=== PATIENT | female | born 1975 | race Hispanic/Latino ===

== ENCOUNTER → 2018-09-06 | Outpatient (CLI) | payer SELFPAY | END | disposition home or self-care (01) | LOC: OIH 13:46 → EDUNIT# 14:00 | PROVIDERS: ATTEND Internal Medicine Cardiovascular Disease | DX: Z13.6 Encounter for screening for cardiovascular disorders (principal) | CPT/HCPCS: 75571 ==

== ENCOUNTER → 2018-09-06 | Outpatient (CLI) | payer BC | END | disposition home or self-care (01) | LOC: SHCH 08:24 | PROVIDERS: ATTEND Internal Medicine Cardiovascular Disease | DX: I51.7 Cardiomegaly (principal) | CPT/HCPCS: 93306 ==

== ENCOUNTER 2024-09-01 06:30 | Day surgery (SDC) | payer BC ==
[2024-08-31 09:50] VITALS: BP 142/90; PULSE 97; RESP 17; TEMP 97.7
[2024-08-31 09:54] LABS: BASOPHILS # (AUTO) 0.03 K/uL (0.00-0.20); BASOPHILS % (AUTO) 0.2 % (0.0-5.0); EOSINOPHILS # (AUTO) 0.22 K/uL (0.00-0.70); EOSINOPHILS % (AUTO) 1.8 % (0.0-8.0); HEMATOCRIT 45.4 % (36-48); IMMATURE GRANULOCYTE ABSOLUTE 0.13 K/uL (0-1); LYMPHOCYTES # (AUTO) 2.4 K/uL (1.0-4.8); LYMPHOCYTES % (AUTO) 19.5 % (21.0-51.0); MEAN CORPUSCULAR HEMOGLOBIN 30.7 pg (27.0-33.0); MEAN CORPUSCULAR HGB CONC 34.8 g/dL (32.0-36.0); MEAN CORPUSCULAR VOLUME 88.2 fL (79-99); MONOCYTES # (AUTO) 0.5 K/uL (0.1-1.0); NEUTROPHILS # (AUTO) 9.1 K/uL (1.8-7.7); NEUTROPHILS % (AUTO) 73.5 % (40.0-77.0); PLATELET COUNT (AUTO) 237 K/uL (130-400); RED BLOOD CELL COUNT(AUTO) 5.15 MIL/uL (4.00-5.50); RED CELL DISTRIBUTION WIDTH 13.6 % (11.0-15.5); WHITE BLOOD COUNT (AUTO) 12.4 K/uL (4.8-10.8)
[2024-08-31 09:59] LABS: APPEARANCE,URINE CLEAR (CLEAR); BILIRUBIN,URINE NEGATIVE (NEGATIVE); COLOR,URINE LIGHT-YELLOW (YELLOW); GLUCOSE, URINE (UA) >=1000 mg/dL (NEGATIVE); KETONES,URINE NEGATIVE (NEGATIVE); LEUKOCYTE ESTERASE ,URINE NEGATIVE Leu/uL (NEGATIVE); NITRATE,URINE NEGATIVE (NEGATIVE); OCCULT BLOOD,URINE NEGATIVE (NEGATIVE); PROTEIN,URINE NEGATIVE (NEGATIVE); UROBILINOGEN,URINE 0.2 mg/dL (0.2-1.0)
[2024-08-31 10:02] LABS: CREATININE 0.8 mg/dL (0.5-1.0)
[2024-08-31 10:04] LABS: INR 0.95 (0.85-1.15); PROTHROMBIN TIME 10.1 SEC (9.6-11.6)
[2024-08-31 10:05] LABS: PARTIAL THROMBOPLASTIN TIME 25.4 SEC (26.3-35.5)
[2024-08-31 10:06] LABS: ADD UA MICROSCOPIC YES
[2024-08-31 10:28] LABS: RBC,URINE 0-1 /HPF (0-1); SQUAMOUS EPITHELIAL CELL,UR RARE /HPF (0-2); WBC,URINE 0-1 /HPF (0-1)
--- NOTE | 2024-08-31 16:42 | NUR ---
RE: LABS REPORTED CBC RESULTS TO JULIETH / DR OLIVAS, OK TO PROCEED. NO NEW ORDERS.
[~2024-09-01] VITALS: Ht 162.6 cm; Wt 84.1 kg
[2024-09-01] VITALS (19 sets, daily range): BP systolic 132–170; BP diastolic 63–104; PULSE 62–87; RESP 14–19; TEMP 97.4–97.9
[~2024-09-01 06:30] MED LIST: AMLO-258 PO; DAPA10TA PO; LEVO137T2 PO; LOSA1TAB54 PO; METF-444 PO; SEMA1PEN3 SQ
[2024-09-01] MEDS ORDERED: LIDOCAINE PF 100MG/5ML (2%) SYRINGE 5ML ONE (07:09)
[2024-09-01] MEDS ORDERED: rocuRONium bROMide 10MG/1ML 5ML VL ONE (07:10)
[2024-09-01] MEDS ORDERED: proPOFol 10 MG/ML 20ML VIAL IV ONE (07:10)
[2024-09-01] MEDS ORDERED: FENTanyl CITRate PF 50 MCG/1 ML 2ML VIAL ONE ×2 (07:10→08:22)
[2024-09-01] MEDS ORDERED: MIDAZOLAM HCL 1 MG/ML 2ML VIAL ONE (07:10)
[2024-09-01] MEDS ORDERED: VANCOMYCIN 1G/250ML KIT 0 ML IV ONE (07:11)
[2024-09-01] MEDS ORDERED: TOBRAMYCIN SULFATE ONE (07:12)
[2024-09-01] MEDS ORDERED: THROMBIN-JMI 5000 UNIT/VIAL TP ONE (07:13)
[2024-09-01] MEDS ORDERED: dexmedeTOMIDine HCL 200 MCG/2 ML VIAL IV ONE ×2 (07:16→07:35)
[2024-09-01] MEDS ORDERED: phenylEPHRINE HCL 10 MG/ML 1ML VIAL IV ONE (07:26)
[2024-09-01] MEDS: 0.9%NACL 1000ML 1,000 ML IV ONE (08:01)
[2024-09-01] MEDS: ceFAZolin SODIUM 2 GM VIAL ONE (08:11)
[2024-09-01] MEDS ORDERED: ondanSETRON 4MG INJ ONE (08:17)
[2024-09-01] MEDS ORDERED: dexaMETHasone SOD PHOSPHATE 4 MG/ML 1ML VIAL ONE (08:17)
[2024-09-01] MEDS ORDERED: METHYLPREDNISOLONE ACETATE 80 MG/ML ONE (08:18)
[2024-09-01] MEDS: BUPIvacaine/PF 0.25% 30ML VIAL IJ ONE (08:40)
[2024-09-01] MEDS: METHYLPREDNISOLONE ACETATE 80 MG/ML ONE (08:40)
[2024-09-01] MEDS: FENTanyl CITRate PF 50 MCG/1 ML 2ML VIAL ONE (08:40)
[2024-09-01] MEDS: LIDOCAINE 1%-EPI 1:100,000 20 ML VIAL ONE (08:40)
[2024-09-01] MEDS ORDERED: NEOSTIGMINE METHYLSULFATE 1MG/ML IV ONE (08:48)
[2024-09-01] MEDS ORDERED: GLYCOPYRROLATE 0.2 MG/ML 5 ML VIAL ONE (08:48)
--- NOTE | 2024-09-01 09:46 | OP ---
DATE OF PROCEDURE: 09/01/2024 PREOPERATIVE DIAGNOSIS: Thoracolumbar pathologic fractures at L2-L5. POSTOPERATIVE DIAGNOSIS: Pathologic fracture. SURGEON: Syed Lee M.D. PROCEDURES: Open biopsy of L5 pathologic fracture and biopsy of L2 as well. The patient tolerated the procedure well. There were no complications. INDICATIONS FOR PROCEDURE: The patient is a 49-year-old female patient seen earlier because of compression fractures after she had some activity. Nevertheless, she was seen with x-rays and MRI and bone scan months after, revealed another fracture but this one without any inciting event. She was advised, agreed and consented freely for the biopsy. DESCRIPTION OF PROCEDURE: The patient was brought to the operating room. Adequate general endotracheal anesthesia was achieved. IV antibiotics were given. Thereafter, DVT garments and the needle for the EMG, SSEP were secured on there. Then, the back was extensively prepped and draped in the usual sterile fashion. All pressure areas were padded and then ____. Small incision was done at L5. Dissection was continued. I was able to identify the pedicle. This was correlated with x-rays on the AP and lateral fluoroscopy. Thereafter, the drill was used to start the pest control pilot hole in the pedicle of L5 in the right side and thereafter, I was able to use the pituitary and then the trocar as well to remove bone for the biopsy. A small amount of blood was also sent. A small piece of Gelfoam was positioned to achieve hemostasis. Thereafter, the second biopsy at L2 was done percutaneously and this was in the contralateral left side. The pedicle was identified on the AP and lateral fluoroscopy. The stab wound was done with blade 11 and through there, the trocar was inserted. Always on the AP and lateral fluoroscopy, this was advanced. Once in the vertebral body, we used the trocar to remove a small amount of bone as well as some of the blood, which was sent in a separate container. Thereafter, Marcaine 0.25% and lidocaine 1% with epinephrine were infiltrated in those delineated skin sites and then local care was given. On the AP and lateral fluoroscopy, we proceeded to do an epidural block at L4-L5. The Tuohy needle was inserted using the resistant technique. The epidural space was entered and thereafter, the spinal block was given, 1 mL of 0.25% spinal Marcaine with 50 mcg of fentanyl and 40 mg of Depo-Medrol. The patient tolerated the procedure well. There were no complications. The EMG, SSEP remained baseline. Sponge count was reported complete at the end of the procedure. TID: [id number] RECEIPT: [id number]
--- NOTE | 2024-09-01 11:55 | NUR ---
PT CAOX4 GOOD DISTAL PMS TO ALL EXTREMITIES VSS NAD. DISCHARGE INSTRUCTIONS GIVEN TO BOTH PT AND 2 SONS IN ROOM IV REMOVED SITE ASYMPTOMATIC. PT WHEELED OUTSIDE SON DRIVING.
[2024-09-01] MEDS ORDERED: IOHEXOL 180 MG/ML 20 ML VIAL ONE (12:26)
--- NOTE | 2024-09-01 18:12 | HMCIMG ---
LUMBAR SPINE 2-3VWS HISTORY: Lumbar biopsy COMPARISON: None FINDINGS: Fluoroscopic images were obtained. Please see procedure report by the referring physician. IMPRESSION: 1. Intraoperative films.
== END 2024-09-01 12:12 | disposition home or self-care (01) ==
LOC: DAH 06:30
PROVIDERS: ATTEND Neurological Surgery
DX: M84.48XA Pathological fracture, other site, initial encounter for fracture (principal); M89.9 Disorder of bone, unspecified; I10 Essential (primary) hypertension; E11.9 Type 2 diabetes mellitus without complications; E78.00 Pure hypercholesterolemia, unspecified; G95.29 Other cord compression; M48.02 Spinal stenosis, cervical region; M50.123 Cervical disc disorder at C6-C7 level with radiculopathy; M50.122 Cervical disc disorder at C5-C6 level with radiculopathy; Z90.710 Acquired absence of both cervix and uterus; Z86.73 Personal history of transient ischemic attack (TIA), and cerebral infarction without residual deficits
CPT/HCPCS: 80048; 85025; 85610; 85730; 86850; 86900; 86901; 81001; 36415; 20251; 20225; 82948 ×2; 88307; 72100; A4510; A4663; A4606; J3010 ×3; J3490 ×5; J7030; J0665; J2003; J2250; J2704; J2405; J2710; J1100; J2371; J1040; Q9965; J0690; A4649; C1887; A4215; A4223 ×2; A4213; A6251; A4222; A4221; A4216; A4600; J3260; J3370

== ENCOUNTER 2024-10-17 09:14 | Day surgery (SDC) | payer BC ==
[2024-10-16 11:36] LABS: IMMATURE GRANULOCYTE ABSOLUTE 0.04 K/uL (0-1); NUCLEATED RED BLOOD CELLS 0.0 % (0.0-0.19); PLATELET COUNT (AUTO) 160 K/uL (130-400); RED BLOOD CELL COUNT(AUTO) 4.66 MIL/uL (4.00-5.50); RED CELL DISTRIBUTION WIDTH 13.8 % (11.0-15.5); WHITE BLOOD COUNT (AUTO) 7.4 K/uL (4.8-10.8)
[2024-10-16 11:36] LABS: APPEARANCE,URINE CLEAR (CLEAR); GLUCOSE, URINE (UA) 500 mg/dL (NEGATIVE); LEUKOCYTE ESTERASE ,URINE NEGATIVE Leu/uL (NEGATIVE); NITRATE,URINE NEGATIVE (NEGATIVE); OCCULT BLOOD,URINE NEGATIVE (NEGATIVE)
[2024-10-16 11:39] LABS: CREATININE 1.7 mg/dL (0.5-1.0); GLOMERULAR FILTR. RATE CALC 36.0 mL/min (>90); GLUCOSE,RANDOM 342.0 mg/dL (70-105); SODIUM SERUM 138.0 mmol/L (136-145); UREA NITROGEN, BLOOD 37.0 mg/dL (7-18)
[2024-10-16 11:40] LABS: ADD UA MICROSCOPIC YES
[2024-10-16 11:42] LABS: SQUAMOUS EPITHELIAL CELL,UR MOD /HPF (0-2)
[2024-10-16 12:11] VITALS: BP 160/84; PULSE 114; RESP 16; TEMP 97.6
[2024-10-16 12:46] LABS: INR <= 0.93 (0.85-1.15)
[2024-10-17] VITALS (16 sets, daily range): BP systolic 112–182; BP diastolic 70–111; PULSE 80–111; RESP 16–19; TEMP 96.8–97.9
[~2024-10-17] VITALS: Ht 160 cm; Wt 87.3 kg
[~2024-10-17 09:14] MED LIST changes: +LOSA100T59 PO; -LOSA1TAB54 PO; -METF-444 PO
[2024-10-17] MEDS ORDERED: VANCOMYCIN 1G/250ML KIT 250 ML IV ONE (09:27)
[2024-10-17] MEDS ORDERED: LIDOCAINE PF 100MG/5ML (2%) SYRINGE 5ML ONE (09:57)
[2024-10-17] MEDS ORDERED: NEOSTIGMINE METHYLSULFATE 1MG/ML IV ONE (09:58)
[2024-10-17] MEDS ORDERED: SUCCINYLCHOLINE CHLORIDE 20 MG/ML 10 ML VIAL ONE (09:58)
[2024-10-17] MEDS ORDERED: GLYCOPYRROLATE 0.2 MG/ML 5 ML VIAL ONE (09:58)
[2024-10-17] MEDS ORDERED: MIDAZOLAM HCL 1 MG/ML 2ML VIAL ONE (09:59)
[2024-10-17] MEDS: 0.9%NACL 1000ML 1,000 ML IV ONE (10:10)
[2024-10-17] MEDS ORDERED: SUGAMMADEX SODIUM 200 MG/2 ML VIAL IV ONE (10:23)
[2024-10-17] MEDS ORDERED: FAMOTIDINE 20MG VIAL IV ONE (10:24)
[2024-10-17] MEDS ORDERED: IOHEXOL 180 MG/ML 10 ML VIAL ONE ×2 (10:25→10:38)
[2024-10-17] MEDS ORDERED: METF-446 PO (10:50)
[2024-10-17] MEDS: VANCOMYCIN 1G VIAL TP ONE (11:24)
[2024-10-17] MEDS ORDERED: LIDOCAINE 1%-EPI 1:100,000 20 ML VIAL ONE (11:25)
--- NOTE | 2024-10-18 08:43 | OP ---
DATE OF PROCEDURE: 10/17/2024 INDICATIONS FOR PROCEDURE: A 49-year-old female with a history of intractable lower back pain and evidence of compression fracture at T12 and L2, who has had failed to improve with conservative treatment, for which she was advised, agreed and consented freely. PREOPERATIVE DIAGNOSIS: Thoracolumbar compression fracture due to osteoporosis. POSTOPERATIVE DIAGNOSIS: Thoracolumbar compression fracture due to osteoporosis. PROCEDURE: T12-L2 kyphoplasty. SURGEON: Syed Lee MD ANESTHESIA: General. CONDITION: The patient tolerated the procedure well. COMPLICATIONS: There were no complications. FINDINGS: There was evidence of osteoporotic fracture at T12 and L2, the T12 more severe. DESCRIPTION OF PROCEDURE: The patient was brought to the operating room. Adequate general endotracheal anesthesia was achieved. IV antibiotics were given. Thereafter, the patient was positioned prone with adequate padding to pressure area. Then the back was extensively prepped and draped in the usual sterile fashion. Under fluoroscopic guidance, AP and lateral, we proceeded to cecilio the entry sites for the trocars at T12 and L2. AP and lateral fluoroscopy, the delineated incisions were infiltrated with lidocaine with epinephrine. The stab wound was then done and then a we proceed to enter the cannula and they were placed under fluoroscopic guidance on the AP and lateral fluoroscopy. Thereafter, the cannulas for L2 as well were placed. On the AP and lateral fluoroscopy, stab wound incisions were done and the trocars were inserted. Once adequate position on the AP and lateral fluoroscopy, we proceeded to start mixing the cement and before, we proceeded to use the drill and then the balloon kyphoplasty to inflate this balloon. There was noticeable evidence of violation of the inferior endplate at L2 as part of the balloon went into the disk space. Once adequate consistency of the cement was achieved, then we proceeded to place cement at T12 under fluoroscopic guidance with AP and lateral. Once I was satisfied of the cement and basically to avoid this reaching the posterior wall or sterilization, this was instilled avoiding this. The cement was removed. The cannula was placed now at the L2 and again under fluoroscopic guidance, we proceeded to place the cement. Once I was satisfied of the displacement of the cement avoiding posterior migration and/or into the disk space, this was removed. Thereafter, the trocars were removed. Local care was given. The patient tolerated the procedure well. There were no complications. EMG and SSEP remained baseline. Family members were addressed. TID: [id number] RECEIPT: [id number]
--- NOTE | 2024-10-27 12:09 | HMCIMG ---
Some enteritis windmill mucinous 99 cm at the mid sternum digital G234 pieces in the past Intraoperative fluoroscopic assessment of the lumbar spine INDICATION: Compression fracture of T12 and L2 COMPARISON: None available Fluoroscopy time: 2.33 minutes. FINDINGS: 10 images demonstrate patient undergoing vertebral body augmentation of T12 and L2 which appears to have the cement in satisfactory position. IMPRESSION: Details of the finding in the procedural note.
== END 2024-10-17 13:39 | disposition home or self-care (01) ==
LOC: DAH 09:14
PROVIDERS: ATTEND Neurological Surgery
DX: M80.08XA Age-related osteoporosis with current pathological fracture, vertebra(e), initial encounter for fracture (principal); M51.86 Other intervertebral disc disorders, lumbar region; M54.50 Low back pain, unspecified; E11.9 Type 2 diabetes mellitus without complications; E78.00 Pure hypercholesterolemia, unspecified; I10 Essential (primary) hypertension; Z79.890 Hormone replacement therapy; Z79.84 Long term (current) use of oral hypoglycemic drugs; Z79.899 Other long term (current) drug therapy; Z98.890 Other specified postprocedural states; Z90.710 Acquired absence of both cervix and uterus
CPT/HCPCS: 80048; 85025; 85610; 85730; 86850; 86900; 86901; 81001; 36415; 22513; 22515; 82948 ×3; 72080; J1815; A4510; J3260 ×2; A4223 ×2; A4600; C1713; A4663; J3373 ×2; J3490 ×5; J3010 ×2; J1100; J0330; J7030; J0665 ×2; J2003; J2250; J2704; J2405; J2710; J0690; Q9965 ×2; A4649 ×3; A4930 ×2; A4215; A4213; A4222; A4221; A4216